=== PATIENT | male | born 2000 | race Caucasian/White ===

== ENCOUNTER 2020-05-07 22:32 | Emergency (ER) | payer OTHER ==
[~2020-05-07] VITALS: Ht 188 cm; Wt 88.1 kg
[2020-05-07 22:35] VITALS: BP 140/92
== END 2020-05-07 23:23 | disposition home or self-care (01) ==
LOC: ED 23:17
DX: K59.00 Constipation, unspecified (principal)
CPT/HCPCS: 99282